=== PATIENT | female | born 1990 | race Caucasian/White ===

== ENCOUNTER 2018-05-12 08:07 | Observation (INO) ==
[2018-05-12] MEDS ORDERED: Bisacodyl 10 MG Supp RECTAL PRN (12:57)
[2018-05-12] MEDS ORDERED: Acetaminophen 325 MG Tablet PO PRN (12:57)
--- NOTE | 2018-05-12 15:56 | P.HP ---
History of Present Illness Primary Care Physician: No Primary Care Physician Chief Complaint: Shortness of breath History of Present Illness: This is a 28-year-old female with a history of bipolar disorder, diabetes with neuropathy, asthma and tobacco user. She presents to the ED because of shortness of breath. For the past week, patient has been complaining of wheezing, shortness of breath and nonproductive cough. No fever or chills. Patient unable to recall triggers. States she has not been hospitalized for asthma for the last 10 years. In the emergency department, she continued to have wheezing despite receiving 8 doses of nebulizations, 125 mg Solu-Medrol and 2 g of magnesium sulfate. She refused ABG. Chest x-ray independently reviewed by me with no acute cardiopulmonary disease. At this time, patient states she is feeling better was able to ambulate to use the restroom. Patient not hypoxic. Patient also reports of uncontrolled diabetes sugars have been over 200 at home. A1c was over 12 the last time it was checked in 2014. Admits to noncompliance. She also complains of chronic green mucoid foul smelling vaginal discharge with dyspareunia for 4 months. She was checked for STD which was negative. Unintentional weight loss of 20 pounds. All other systems reviewed negative Review of Systems All other systems reviewed negative except as stated in HPI PMFSH - History History Provided By: Patient - Medical History Medical History: Medical History (Last Reviewed 05/12/18 @ 15:55 by Refugio Mansfield MD) Anxiety Asthma Bipolar 1 disorder Depression Diabetes Hx of wisdom tooth extraction Neuropathic arthritis - Surgical History Surgical History: Surgical History (Last Reviewed 05/12/18 @ 15:56 by Refugio Mansfield MD) Hx of right knee surgery Hx of tonsillectomy - Family History Family History: Family History (Last Updated 05/12/18 @ 15:56 by Refugio Mansfield MD) Other Family history unknown - Social History I have reviewed the patient's Social History: Yes - Tobacco History Second Hand Smoke Exposure: Yes Smoking Status: Current every day smoker Tobacco Type: Cigarettes - Alcohol History How Often Do You Have a Drink Containing Alcohol: Never - Substance Use History Substance History: Active Abuse Medications and Allergies Active Medications: Active Medications Acetaminophen (Tylenol) 650 mg PO Q4H PRN PRN Reason: Temp > 100.4 Al Hydroxide/Mg Hydroxide (Milk Of Magnesia Liq) 30 ml PO Q12H PRN PRN Reason: Mild Constipation Albuterol (Albuterol Neb (Prn)) 1.25 mg NEB Q2HR NEB PRN PRN Reason: DYSPNEA Albuterol (Albuterol Neb (Carmela)) 2.5 mg NEB Q4HR NEB CARMELA Bisacodyl (Dulcolax Supp) 10 mg RECTAL DAILY PRN PRN Reason: SEVERE CONSITIPATION Insulin Human NPH (Novolin N Inj) 30 units SQ BID CARMELA Insulin Human Regular (Novolin R Correctional Sugar Inj) 0 units SQ ACHS CARMELA; Protocol Lactulose (Lactulose Liq) 30 ml PO DAILY PRN PRN Reason: SEVERE CONSITIPATION Methylprednisolone Sodium Succinate (Solumedrol Inj) 60 mg IV.PUSH QID CARMELA Ondansetron HCl (Zofran Inj) 4 mg IV.PUSH Q6H PRN PRN Reason: NAUSEA OR VOMITING Senna/Docusate Sodium (Zuly-Colace) 1 tab PO BID CARMELA Sennosides (Senokot) 17.2 mg PO Q12H PRN PRN Reason: Moderate Constipation Allergies Allergy/AdvReac Type Severity Reaction Status Date / Time insulin detemir Allergy Severe Rash Verified 05/12/18 08:59 insulin glargine Allergy Severe Rash Verified 05/12/18 08:59 Home Medications Medication Instructions Recorded Confirmed Type insulin NPH isoph U-100 human 30 unit SUBCUT BID 05/12/18 05/12/18 History [Novolin N NPH U-100 Insulin] insulin regular human [Novolin R 1 sliding scale dose SUBCUT UD 05/12/18 History Regular U-100 Insuln] Exam Vital signs: Blood pressure 97/67 heart rate 127 respiratory rate 18 temperature 97.6 Narrative: Seen and examined with a female [employer] tech(permission granted by pt) GENERAL: Well-developed, well-nourished in no distress. SKIN: Warm and dry. HEAD: Atraumatic. Normocephalic. EYES: Pupils equal and round. No scleral icterus. No injection or drainage. ENT: No nasal bleeding or discharge. Mucous membranes pink and moist. NECK: Trachea midline. No JVD. CARDIOVASCULAR: Regular rate and rhythm. RESPIRATORY: No accessory muscle use. Mild expiratory wheezes breath sounds equal bilaterally. GASTROINTESTINAL: Abdomen soft, non-tender, nondistended. MUSCULOSKELETAL: Extremities without clubbing, cyanosis, or edema. No obvious deformities. NEUROLOGICAL: Awake and alert. No obvious cranial nerve deficits. Motor grossly within normal limits. Five out of 5 muscle strength in the arms and legs. Normal speech. PSYCHIATRIC: Appropriate mood and affect; insight and judgment normal. Caprini VTE Risk Assessment Caprini VTE Risk Assessment: No/Low Risk (score <= 1) Caprini Risk Assessment Model: Point Value = 1 Point Value = 2 Point Value = 3 Point Value = 5 Age 41-60 Minor surgery BMI > 25 kg/m2 Swollen legs Varicose veins or History of unexplained or recurrent spontaneous Oral contraceptives or hormone replacement Sepsis (< 1 month) Serious lung disease, including pneumonia (< 1 month) Abnormal pulmonary function Acute myocardial infarction Congestive heart failure (< 1 month) History of inflammatory bowel disease Medical patient at bed rest Age 61-74 Arthroscopic surgery Major open surgery (> 45 min) Laparoscopic surgery (> 45 min) Malignancy Confined to bed (> 72 hours) Immobilizing plaster cast Central venous access Age >= 75 History of VTE Family history of VTE Factor V Leiden Prothrombin [id number] Lupus anticoagulant Anticardiolipin antibodies Elevated serum homocysteine Heparin-induced thrombocytopenia Other congenital or acquired thrombophilia Stroke (< 1 month) Elective arthroplasty Hip, pelvis, or leg fracture Acute spinal cord injury (< 1 month) Prophylaxis Regimen: Total Risk Factor Score Risk Level Prophylaxis Regimen 0-1 Low Early ambulation 2 Moderate Order ONE of the following: *Sequential Compression Device (SCD) *Heparin 5000 units SQ BID 3-4 Higher Order ONE of the following medications: *Heparin 5000 units SQ TID *Enoxaparin/Lovenox 40 mg SQ daily (WT < 150 kg, CrCl > 30 mL/min) *Enoxaparin/Lovenox 30 mg SQ daily (WT < 150 kg, CrCl > 10-29 mL/min) *Enoxaparin/Lovenox 30 mg SQ BID (WT < 150 kg, CrCl > 30 mL/min) AND/OR *Sequential Compression Device (SCD) 5 or more Highest Order ONE of the following medications: *Heparin 5000 units SQ TID (Preferred with Epidurals) *Enoxaparin/Lovenox 40 mg SQ daily (WT < 150 kg, CrCl > 30 mL/min) *Enoxaparin/Lovenox 30 mg SQ daily (WT < 150 kg, CrCl > 10-29 mL/min) *Enoxaparin/Lovenox 30 mg SQ BID (WT < 150 kg, CrCl > 30 mL/min) AND *Sequential Compression Device (SCD) Assessment and Plan - Plan This is a 28-year-old female with a history of bipolar disorder, diabetes with neuropathy, asthma and tobacco user. She presents to the ED because of shortness of breath associated with wheezing and nonproductive cough. No fever or chills. Chest x-ray with no acute cardiopulmonary disease Asthma exacerbation. Patient not hypoxic. D-dimer within normal limits. Continue nebulization, IV steroids and as needed oxygen. Increase activity as tolerated. Uncontrolled diabetes secondary to noncompliance and steroids. Restart home medications and adjust as needed. Monitor fingersticks with sliding scale coverage. Diabetic education. Chronic vaginal discharge. Obtain urinalysis and GC/chlamydia culture. Advice outpatient Pap smear Weight loss likely secondary to uncontrolled diabetes. Check TSH. DVT prophylaxis with SCD. Discharge Planning: Home in 1-2 days
[2018-05-12] MEDS: MethylPREDNISolone Sod Succinate Inj 125 MG/2 ML Vial IV.PUSH SCH ×3 (17:08→22:11)
[2018-05-12] MEDS: Insulin NovoLIN Regular Correctional Sugar Inj SQ SCH ×2 (17:23→22:15)
[2018-05-12] MEDS ORDERED: Melatonin 5 MG Tablet PO PRN (17:54)
[2018-05-12] MEDS: Senna/Docusate Sodium 8.6/50 MG Tablet PO SCH (22:11)
[2018-05-13] MEDS: Insulin NovoLIN Regular Correctional Sugar Inj SQ SCH ×4 (08:20→20:17)
[2018-05-13] MEDS: MethylPREDNISolone Sod Succinate Inj 125 MG/2 ML Vial IV.PUSH SCH ×2 (08:39→12:32)
[2018-05-13] MEDS: Senna/Docusate Sodium 8.6/50 MG Tablet PO SCH ×2 (08:39→20:18)
[2018-05-13] MEDS ORDERED: Acetaminophen 325 MG Tablet PO PRN (09:54)
[2018-05-13] MEDS ORDERED: Naloxone Inj 0.4 MG/ML Vial IV.PUSH PRN (09:54)
[2018-05-13] MEDS: Ibuprofen 400 MG Tablet PO PRN (12:31)
--- NOTE | 2018-05-13 14:07 | P.PN ---
Subjective Interval history: Follow-up asthma. States she is doing better passed walk test Physical Exam Vital signs: Vital Signs 05/12/18 15:52 05/12/18 16:00 05/12/18 19:08 Temperature 99.2 F Pulse Rate 127 H 128 H 111 H Respiratory Rate 18 22 18 Blood Pressure 112/64 Pulse Oximetry 98 97 97 Pulse Oximetry [Exertion on Room Air] Pulse Oximetry [Resting on Room Air] 05/12/18 20:00 05/12/18 23:03 05/13/18 00:00 Temperature 98 F 98.2 F Pulse Rate 119 H 109 H 110 H Respiratory Rate 20 18 20 Blood Pressure 109/55 L 109/56 L Pulse Oximetry 97 98 Pulse Oximetry [Exertion on Room Air] Pulse Oximetry [Resting on Room Air] 05/13/18 03:20 05/13/18 07:31 05/13/18 08:00 Temperature 97.5 F L Pulse Rate 104 H 102 H 103 H Respiratory Rate 16 18 16 Blood Pressure 96/53 L Pulse Oximetry 98 98 Pulse Oximetry [Exertion on Room Air] Pulse Oximetry [Resting on Room Air] 05/13/18 12:00 05/13/18 12:45 Temperature 97.2 F L Pulse Rate 95 H Respiratory Rate 16 Blood Pressure 104/54 L Pulse Oximetry 96 Pulse Oximetry [Exertion on Room Air] 97 Pulse Oximetry [Resting on Room Air] 94 L Intake & Output 05/12/18 05/13/18 05/13/18 18:59 06:59 18:59 Intake Total 120 / 120 Balance 120 / 120 Weight 54.638 kg 52.3 kg Intake: Oral 120 / 120 Other: # Voids 2 Weight On Admission 54.431 kg Narrative: GENERAL: Well-developed, well-nourished in no distress. SKIN: Warm and dry. CARDIOVASCULAR: Regular rate and rhythm. RESPIRATORY: No accessory muscle use. Improved expiratory wheezes breath sounds equal bilaterally. GASTROINTESTINAL: Abdomen soft, non-tender, nondistended. MUSCULOSKELETAL: Extremities without clubbing, cyanosis, or edema. No obvious deformities. NEUROLOGICAL: Awake and alert. No obvious cranial nerve deficits. Motor grossly within normal limits. Five out of 5 muscle strength in the arms and legs. Normal speech. Results - Labs Laboratory Results - last 24 hr 05/12/18 05/12/18 05/12/18 16:21 16:45 21:55 POC Glucose 302 H 316 H TSH 0.649 05/13/18 05/13/18 07:43 11:14 POC Glucose 125 H 202 H TSH - Procedures none Assessment and Plan - Plan This is a 28-year-old female with a history of bipolar disorder, diabetes with neuropathy, asthma and tobacco user. She presents to the ED because of shortness of breath associated with wheezing and nonproductive cough. No fever or chills. Chest x-ray with no acute cardiopulmonary disease Asthma exacerbation. Patient not hypoxic. D-dimer within normal limits. Improved nebulization and as needed oxygen. Which to p.o. steroids per increase activity as tolerated. Uncontrolled diabetes secondary to noncompliance and steroids. Improving on home medications and adjust as needed. Monitor fingersticks with sliding scale coverage. Diabetic education. Chronic vaginal discharge. Follow-up urinalysis and GC/chlamydia culture. Advice outpatient Pap smear Weight loss likely secondary to uncontrolled diabetes. Unremarkable TSH DVT prophylaxis with SCD. Discharge Planning: Discharge patient to home possibly later today if she has improved exercise tolerance encouraged to ambulate more. Follow-up pending UA and GC/chlamydia Condition on discharge: Improved Regular Diet as tolerated Ad Alicia activity Rx written: Prednisone and albuterol Follow-up with primary care physician
[2018-05-13] MEDS: predniSONE 20 MG Tablet PO SCH (15:48)
[2018-05-13] MEDS: LORazepam 0.5 MG Tablet PO PRN ×2 (15:52→23:35)
[2018-05-14] MEDS ORDERED: Benzonatate 100 MG Capsule PO ONE (00:46)
[2018-05-14] MEDS: predniSONE 20 MG Tablet PO SCH (08:10)
[2018-05-14] MEDS: Senna/Docusate Sodium 8.6/50 MG Tablet PO SCH ×2 (08:11→22:39)
[2018-05-14] MEDS: Insulin NovoLIN Regular Correctional Sugar Inj SQ SCH ×4 (08:11→22:41)
--- NOTE | 2018-05-14 10:17 | P.PN ---
Subjective Interval history: Follow-up asthma. Did not go home yesterday because she became short of breath after shower. Also reports of illicit tramadol use she would like to try Suboxone and patient has been referred to Dr. Foley or pain management outpatient. Physical Exam Vital signs: Vital Signs 05/13/18 12:00 05/13/18 12:45 05/13/18 14:46 Temperature 97.2 F L Pulse Rate 95 H 95 H Respiratory Rate 16 18 Blood Pressure 104/54 L Pulse Oximetry 96 Pulse Oximetry [Exertion on Room Air] 97 Pulse Oximetry [Resting on Room Air] 94 L 05/13/18 16:00 05/13/18 19:40 05/13/18 20:00 Temperature 97.4 F L 97.7 F Pulse Rate 96 H 90 105 H Respiratory Rate 17 18 20 Blood Pressure 107/59 L 106/51 L Pulse Oximetry 96 94 L 98 Pulse Oximetry [Exertion on Room Air] Pulse Oximetry [Resting on Room Air] 05/13/18 22:00 05/13/18 23:45 05/14/18 00:00 Temperature 97.5 F L Pulse Rate 92 H 100 H 103 H Respiratory Rate 18 18 20 Blood Pressure 103/55 L Pulse Oximetry 95 93 L Pulse Oximetry [Exertion on Room Air] Pulse Oximetry [Resting on Room Air] 05/14/18 08:00 05/14/18 08:45 05/14/18 08:48 Temperature 97.7 F Pulse Rate 91 H 89 Respiratory Rate 18 20 Blood Pressure 104/55 L Pulse Oximetry 98 96 Pulse Oximetry [Exertion on Room Air] Pulse Oximetry [Resting on Room Air] Intake & Output 05/13/18 05/14/18 05/14/18 18:59 06:59 18:59 Intake Total 240 / 240 1680 / 1680 Balance 240 / 240 1680 / 1680 Weight 52.5 kg Intake: Oral 240 / 240 1680 / 1680 Other: # Voids 4 Date of Last Bowel Movement 05/13/18 # Bowel Movements 8 Narrative: GENERAL: Well-developed, well-nourished in no distress. SKIN: Warm and dry. CARDIOVASCULAR: Regular rate and rhythm. RESPIRATORY: No accessory muscle use. Improved expiratory wheezes breath sounds equal bilaterally. GASTROINTESTINAL: Abdomen soft, non-tender, nondistended. MUSCULOSKELETAL: Extremities without clubbing, cyanosis, or edema. No obvious deformities. NEUROLOGICAL: Awake and alert. No obvious cranial nerve deficits. Motor grossly within normal limits. Five out of 5 muscle strength in the arms and legs. Results - Labs Laboratory Results - last 24 hr 05/13/18 05/13/18 05/13/18 11:14 12:00 16:35 POC Glucose 202 H 276 H Chlam trachomat DNA PCR Not detected N.gonorrhoeae DNA (PCR) Not detected 05/13/18 05/14/18 20:12 07:37 POC Glucose 182 H 242 H Chlam trachomat DNA PCR N.gonorrhoeae DNA (PCR) - Procedures none Assessment and Plan - Plan This is a 28-year-old female with a history of bipolar disorder, diabetes with neuropathy, asthma and tobacco user. She presents to the ED because of shortness of breath associated with wheezing and nonproductive cough. No fever or chills. Chest x-ray with no acute cardiopulmonary disease Asthma exacerbation. Patient not hypoxic. D-dimer within normal limits. Improved nebulization and as needed oxygen. Ct p.o. steroids increase activity as tolerated. Uncontrolled diabetes secondary to noncompliance and steroids. Improving on home medications and adjust as needed. Increase NPH insulin to 33 units twice a day. Monitor fingersticks with sliding scale coverage. Diabetic education. Chronic vaginal discharge. Follow-up urinalysis negative GC/chlamydia culture. Advice outpatient Pap smear Weight loss likely secondary to uncontrolled diabetes. Unremarkable TSH Illicit tramadol use. Patient has been extensively counseled. Outpatient follow-up with pain management. DVT prophylaxis with SCD. Discharge Planning: Discharge patient to home possibly later today if she has improved exercise tolerance encouraged to ambulate more. Follow-up pending UA Condition on discharge: Improved Regular Diet as tolerated Ad Alicia activity Rx written: Prednisone and albuterol Follow-up with primary care physician and pain management
[2018-05-14 10:46] LABS: Bilirubin,Urine Negative (Negative); Clarity,Urine Slightly Cloudy (Clear); Color,Urine Yellow (Yellw/Straw); Leukocyte Esterase,Urine Small (Negative); Nitrite,Urine Negative (Negative); PH,Urine 6.5 (5.0-8.5); Urobilinogen,Urine 0.2 mg/dL (Less than 2)
[2018-05-14 10:50] LABS: RBC,Urine 0-3 /hpf (0-3); Squamous Epithelial Cell,Urine 0-5 /hpf (0-5); WBC,Urine 21-50 /hpf (0-5)
[2018-05-14] MEDS: LORazepam 0.5 MG Tablet PO PRN ×3 (11:03→22:50)
[2018-05-14] MEDS: Ibuprofen 400 MG Tablet PO PRN (16:36)
[2018-05-15] MEDS: Insulin NovoLIN Regular Correctional Sugar Inj SQ SCH ×2 (07:55→11:30)
[2018-05-15] MEDS: predniSONE 20 MG Tablet PO SCH (08:04)
[2018-05-15] MEDS: Senna/Docusate Sodium 8.6/50 MG Tablet PO SCH (08:06)
[2018-05-15] MEDS ORDERED: Benzonatate 100 MG Capsule PO PRN (08:33)
--- NOTE | 2018-05-15 08:33 | P.PN ---
Subjective Interval history: Follow-up asthma exacerbation. Patient did not want to go home yesterday because she was still not feeling any better. She was so anxious and was clinging on oxygen despite being not hypoxic. This morning feels tired with usual short of breath on 2 L nasal cannula. Discussed with nursing and respiratory therapy Physical Exam Vital signs: Vital Signs 05/14/18 09:35 05/14/18 12:00 05/14/18 12:18 Temperature 97.7 F Pulse Rate 96 H 95 H Respiratory Rate 20 16 Blood Pressure 110/58 L Pulse Oximetry 93 L 94 L 05/14/18 13:00 05/14/18 15:38 05/14/18 15:52 Temperature Pulse Rate 94 H Respiratory Rate 17 20 Blood Pressure Pulse Oximetry 93 L 95 05/14/18 16:00 05/14/18 17:57 05/14/18 18:53 Temperature 98.4 F Pulse Rate 102 H 110 H Respiratory Rate 20 16 24 Blood Pressure 119/58 L Pulse Oximetry 93 L 92 L 05/14/18 20:00 05/14/18 20:37 05/14/18 23:52 Temperature 98.6 F 98.2 F Pulse Rate 101 H 87 Respiratory Rate 20 20 Blood Pressure 118/58 L 128/72 Pulse Oximetry 93 L 92 L 94 L 05/15/18 00:00 05/15/18 07:00 05/15/18 08:00 Temperature 98.6 F 97.3 F L Pulse Rate 101 H 53 L Respiratory Rate 20 16 Blood Pressure 118/58 L 160/70 H Pulse Oximetry 94 L 92 L 96 Intake & Output 05/14/18 05/15/18 05/15/18 19:59 06:59 18:59 Intake Total Output Total Balance Weight Intake: Oral Output: Urine Other: # Voids Date of Last Bowel Movement 05/13/18 Narrative: GENERAL: Well-developed, well-nourished in no distress. SKIN: Warm and dry. CARDIOVASCULAR: Regular rate and rhythm. RESPIRATORY: No accessory muscle use. Congested with expiratory wheezes breath sounds equal bilaterally. GASTROINTESTINAL: Abdomen soft, non-tender, nondistended. MUSCULOSKELETAL: Extremities without clubbing, cyanosis, or edema. No obvious deformities. NEUROLOGICAL: Awake and alert. No obvious cranial nerve deficits. Motor grossly within normal limits. Five out of 5 muscle strength in the arms and legs. Results - Labs Laboratory Results - last 24 hr 05/14/18 05/14/18 05/14/18 10:40 11:00 11:58 POC Glucose 110 58 L Ur Collection Type Clean catch Urine Color Yellow Urine Clarity Slightly cloudy Urine pH 6.5 Ur Specific [place] 1.010 Urine Protein Negative Urine Glucose (UA) 1000 or greater H Urine Ketones Negative Urine Occult Blood Negative Urine Nitrate Negative Urine Bilirubin Negative Urine Urobilinogen 0.2 Ur Leukocyte Esterase Small H Urine RBC 0-3 Urine WBC 21-50 H Urine WBC Clumps Few H Ur Squamous Epith Cells 0-5 Micro UA Comment Culture indicated Ur Microscopic Review Microscopic reviewed Urine Culture Comments Culture indicated 05/14/18 05/14/18 05/14/18 12:04 12:33 16:41 POC Glucose 62 L 102 285 H Ur Collection Type Urine Color Urine Clarity Urine pH Ur Specific [place] Urine Protein Urine Glucose (UA) Urine Ketones Urine Occult Blood Urine Nitrate Urine Bilirubin Urine Urobilinogen Ur Leukocyte Esterase Urine RBC Urine WBC Urine WBC Clumps Ur Squamous Epith Cells Micro UA Comment Ur Microscopic Review Urine Culture Comments 05/14/18 05/15/18 22:38 07:54 POC Glucose 283 H 55 L Ur Collection Type Urine Color Urine Clarity Urine pH Ur Specific [place] Urine Protein Urine Glucose (UA) Urine Ketones Urine Occult Blood Urine Nitrate Urine Bilirubin Urine Urobilinogen Ur Leukocyte Esterase Urine RBC Urine WBC Urine WBC Clumps Ur Squamous Epith Cells Micro UA Comment Ur Microscopic Review Urine Culture Comments - Procedures none Assessment and Plan - Plan This is a 28-year-old female with a history of bipolar disorder, diabetes with neuropathy, asthma and tobacco user. She presents to the ED because of shortness of breath associated with wheezing and nonproductive cough. No fever or chills. Chest x-ray with no acute cardiopulmonary disease Asthma exacerbation. D-dimer within normal limits. She is not any better still with congestion expiratory wheezes with significant dyspnea on exertion compounded with anxiety. Continue nebulization and as needed oxygen. Ct p.o. steroids increase and start antitussives and Acapella. Activity as tolerated. Uncontrolled diabetes secondary to noncompliance and steroids. Improving on home medications and adjust as needed. Increase NPH insulin to 33 units twice a day. Monitor fingersticks with sliding scale coverage. Diabetic education. Chronic vaginal discharge. Negative GC/chlamydia culture. Advice outpatient Pap smear. Abnormal urinalysis pending urine culture started on empiric Bactrim Weight loss likely secondary to uncontrolled diabetes. Unremarkable TSH Illicit tramadol use. Patient has been extensively counseled. Outpatient follow-up with pain management. DVT prophylaxis with SCD. Discharge Planning: Discharge patient to home possibly later today if she has improved exercise tolerance encouraged to ambulate more. Condition on discharge: Improved Regular Diet as tolerated Ad Alicia activity Rx written: Prednisone and albuterol Follow-up with primary care physician and pain management
[2018-05-15] MEDS ORDERED: guaiFENesin 600 MG ER Tablet PO SCH (09:00)
[2018-05-15] MEDS: LORazepam 0.5 MG Tablet PO PRN (10:45)
[2018-05-15 12:21] VITALS: BP 120/60; TEMP 98.2; O2SAT 93
[2018-05-15 13:05] VITALS: PULSE 97; RESP 16
--- NOTE | 2018-05-15 15:10 | P.DS ---
Date of admission: 05/12/18 15:03 Primary care physician: No Primary Care Physician Brief History from admission: This is a 28-year-old female with a history of bipolar disorder, diabetes with neuropathy, asthma and tobacco user. She presents to the ED because of shortness of breath. For the past week, patient has been complaining of wheezing, shortness of breath and nonproductive cough. No fever or chills. Patient unable to recall triggers. States she has not been hospitalized for asthma for the last 10 years. In the emergency department, she continued to have wheezing despite receiving 8 doses of nebulizations, 125 mg Solu-Medrol and 2 g of magnesium sulfate. She refused ABG. Chest x-ray independently reviewed by me with no acute cardiopulmonary disease. At this time, patient states she is feeling better was able to ambulate to use the restroom. Patient not hypoxic. Patient also reports of uncontrolled diabetes sugars have been over 200 at home. A1c was over 12 the last time it was checked in 2014. Admits to noncompliance. She also complains of chronic green mucoid foul smelling vaginal discharge with dyspareunia for 4 months. She was checked for STD which was negative. Unintentional weight loss of 20 pounds. All other systems reviewed negative DS: Medications - Discharge Medications Prescriptions: albuterol sulfate 2 puff INHALATION Q4-6H PRN #1 g PRN Reason: Dyspnea prednisone 40 mg PO DAILY #8 tab sulfamethoxazole-trimethoprim 1 tab PO Q12HR #12 tab DS: Summary Hospital Course: This is a 28-year-old female with a history of bipolar disorder, diabetes with neuropathy, asthma and tobacco user. She presents to the ED because of shortness of breath associated with wheezing and nonproductive cough. No fever or chills. Chest x-ray with no acute cardiopulmonary disease Asthma exacerbation. D-dimer within normal limits. Improved. Continue nebulization and as needed oxygen. Ct p.o. steroids, antitussives and Acapella. Activity as tolerated. Uncontrolled diabetes secondary to noncompliance and steroids. Improving on home medications and adjust as needed. Increase NPH insulin to 33 units twice a day. Monitor fingersticks with sliding scale coverage. Diabetic education. Chronic vaginal discharge. Negative GC/chlamydia culture. Advice outpatient Pap smear. Abnormal urinalysis pending urine culture started on empiric Bactrim Weight loss likely secondary to uncontrolled diabetes. Unremarkable TSH Illicit tramadol use. Patient has been extensively counseled. Outpatient follow-up with pain management. DVT prophylaxis with SCD. - Time Spent with Patient Total time spent providing and/or coordinating discharge services: Greater than 30 minutes - Quality: VTE Deep Vein Thrombosis/Pulmonary Embolism Present on Admission: No Exam Vital signs: Vital Signs 05/14/18 17:57 05/14/18 18:53 05/14/18 20:00 Temperature 98.6 F Pulse Rate 110 H 101 H Respiratory Rate 16 24 20 Blood Pressure 118/58 L Pulse Oximetry 92 L 93 L 05/14/18 20:37 05/14/18 23:52 05/15/18 00:00 Temperature 98.2 F 98.6 F Pulse Rate 87 101 H Respiratory Rate 20 20 Blood Pressure 128/72 118/58 L Pulse Oximetry 92 L 94 L 94 L 05/15/18 07:00 05/15/18 08:00 05/15/18 09:02 Temperature 97.8 F Pulse Rate 79 92 H Respiratory Rate 20 20 Blood Pressure 109/74 Pulse Oximetry 92 L 98 05/15/18 09:03 05/15/18 12:00 05/15/18 13:04 Temperature 98.2 F Pulse Rate 90 97 H Respiratory Rate 20 16 Blood Pressure 120/60 Pulse Oximetry 92 L 93 L Intake & Output 05/14/18 05/15/18 05/15/18 19:59 06:59 18:59 Intake Total Output Total Balance Weight Intake: Oral Output: Urine Other: # Voids Date of Last Bowel Movement 05/13/18 Narrative: GENERAL: Well-developed, well-nourished in no distress. SKIN: Warm and dry. CARDIOVASCULAR: Regular rate and rhythm. RESPIRATORY: No accessory muscle use. Improved expiratory wheezes breath sounds equal bilaterally. GASTROINTESTINAL: Abdomen soft, non-tender, nondistended. MUSCULOSKELETAL: Extremities without clubbing, cyanosis, or edema. No obvious deformities. NEUROLOGICAL: Awake and alert. No obvious cranial nerve deficits. Motor grossly within normal limits. Five out of 5 muscle strength in the arms and legs. Results Procedures completed during hospitalization: none Labs on day of discharge: Labs from last 24 hours 05/15/18 05/15/18 05/15/18 11:27 08:32 07:54 POC Glucose 250 H 106 55 L 05/14/18 05/14/18 22:38 16:41 POC Glucose 283 H 285 H Discharge Plan - Discharge Disposition Patient Disposition: 01 Discharge Home - Discharge Condition Condition: Stable - Discharge Order Discharge Orders: Discharge Order (Routine); Ordered 05/15/18 Ordered By: Refugio Mansfield - Discharge Details Discharge Comment: dc if ua neg - Physicians Team Primary Care Provider: Primary Care Kimberley Palma Attending Provider: Refugio Mansfield - Rxs /Orders / Referrals /Forms Prescriptions: New albuterol sulfate 90 mcg/actuation Hfa Aerosol Inhaler 2 puff INHALATION Q4-6H PRN (Reason: Dyspnea) Qty: 1 RF: 0 prednisone 20 mg Tablet 40 mg PO DAILY Qty: 8 RF: 0 sulfamethoxazole-trimethoprim 800-160 mg Tablet 1 tab PO Q12HR Qty: 12 RF: 0 Continue insulin regular human [Novolin R Regular U-100 Insuln] 100 unit/mL Solution 1 sliding scale dose SUBCUT UD Changed insulin NPH isoph U-100 human [Novolin N NPH U-100 Insulin] 100 unit/mL Suspension 33 unit SUBCUT BID Qty: 20 RF: 0 Changed from: 30 unit subcutaneous twice daily Ambulatory Orders / Order Sets / DME: Oxygen Tank (2 liter) (Routine) Location: Determined by Patient Ordered By: Refugio Mansfield Referrals: Pain Management [Outside] - See Instructions (3 days) Ross Lassiter MD [Family Provider] - See Instructions (1wk) Primary Care Kimberley Palma [Primary Care Provider] - See Instructions - Discharge Instructions Patient Printed Instructions: Sulfamethoxazole/Trimethoprim (By mouth), Albuterol (By breathing), Prednisone (By mouth), Asthma (GEN), Urinary Tract Infection in Women (DC) Additional Instructions: Avoid Driving. Regular Diet. Follow up with doctor in a week. Activity as tolerated. Return with any acute changes. - Post Discharge Care Plan Care Plan Goals: Your Health Problems: Goals to Promote Your Health: * To prevent worsening of your condition * To maintain your health at the optimal level Directions to Meet Your Goals: * Take your medications as prescribed * Follow your dietary instruction * Follow activity as directed * Keep your appointments as scheduled * Take your immunizations and boosters as scheduled * If your symptoms worsen call your PCP * If no PCP go to Urgent Care or Emergency Room Smoking is dangerous to your health. Avoid second hand smoke. You may reach the 24-hour crisis hotline for domestic abuse at .
== END 2018-05-15 16:02 | disposition home or self-care (01) ==
LOC: PHEDDLT 15:02 → PH3 15:02
PROVIDERS: ADMIT Internal Medicine; ATTEND Internal Medicine